=== PATIENT | female | born 1955 | race Asian ===

== ENCOUNTER 2016-10-25 09:34 | Outpatient (CLI) | payer OTHER ==
[2016-10-25 12:31] LABS: PLATELET COUNT 212 K/uL (152-353)
[2016-10-25 13:56] LABS: POTASSIUM 4.8 mmol/L (3.6-5.2); SODIUM 141 mmol/L (136-145)
== END 2016-10-25 18:59 | disposition home or self-care (01) ==
LOC: LAB 09:34 → RAD 09:34
PROVIDERS: Family Medicine
DX: I10 Essential (primary) hypertension (principal); I73.89 Other specified peripheral vascular diseases; R04.2 Hemoptysis; E66.01 Morbid (severe) obesity due to excess calories; E55.9 Vitamin D deficiency, unspecified
CPT/HCPCS: 80053; 80061; 81000; 82043; 82306; 82570; 83735; 84439; 84443; 84550; 85027

== ENCOUNTER 2018-10-15 12:20 | Outpatient (CLI) | payer OTHER | END 2018-10-15 23:59 | LOC: US 12:20 | DX: M79.604 Pain in right leg (principal); M79.89 Other specified soft tissue disorders ==

== ENCOUNTER 2019-02-20 11:23 | Outpatient (CLI) | payer OTHER | END 2019-02-20 22:40 | disposition home or self-care (01) | LOC: LABW 11:23 | DX: R05 Cough (principal) | CPT/HCPCS: 87070; 87205 ==

== ENCOUNTER 2019-04-16 13:51 | Outpatient (CLI) | payer OTHER | END 2019-04-16 19:14 | disposition home or self-care (01) | LOC: RESP 13:51 | DX: R06.02 Shortness of breath (principal) ==

== ENCOUNTER 2020-09-23 13:28 | Outpatient (CLI) | payer OTHER | END 2020-09-23 22:39 | disposition home or self-care (01) | LOC: MAMMO 13:28 | PROVIDERS: ATTEND Nurse Practitioner | DX: Z12.31 Encounter for screening mammogram for malignant neoplasm of breast (principal) ==

== ENCOUNTER 2022-06-21 13:03 | Outpatient (CLI) | payer OTHER | END 2022-06-21 17:00 | disposition home or self-care (01) | LOC: MAMMO 13:03 | PROVIDERS: ATTEND Internal Medicine | DX: Z12.31 Encounter for screening mammogram for malignant neoplasm of breast (principal) ==

== ENCOUNTER 2022-12-14 13:00 | Outpatient (CLI) | payer OTHER ==
[~2022-12-14] VITALS: Ht 165.1 cm; Wt 68.0 kg
== END 2022-12-14 23:50 | disposition home or self-care (01) ==
LOC: INF 13:00
PROVIDERS: ATTEND Emergency Medicine Undersea and Hyperbaric Medicine
DX: I87.331 Chronic venous hypertension (idiopathic) with ulcer and inflammation of right lower extremity (principal); B95.62 Methicillin resistant Staphylococcus aureus infection as the cause of diseases classified elsewhere
CPT/HCPCS: J0875